=== PATIENT | male | born 1960 | race Caucasian/White ===

== ENCOUNTER 2019-03-22 12:50 | Emergency (ER) | payer OTHER ==
[~2019-03-22] VITALS: Ht 175.3 cm; Wt 110.0 kg
[2019-03-22] MEDS ORDERED: SOD CHLORIDE 0.9% 1,000 ML IV STA (12:59)
[2019-03-22 13:01] VITALS: Ht 175.3 cm; Wt 110.0 kg
[2019-03-22] MEDS ORDERED: ONDANSETRON 4 MG INJ IV STA (13:10)
--- NOTE | 2019-03-22 13:17 | ERD ---
ER Documentation Chief Complaint Chief Complaint HPI This is a 58-year-old male that was brought into the emergency department by EMS after he was found sleeping on a hotel couch. The made found the patient and there was empty bottles of liquor. There is no drug paraphernalia. The patient stated he had consumed a significant amount of alcohol. EMS stated that there is no evidence of trauma. The patient denies any past medical history. He denies a headache. He denies any chest pain. He has no shortness of breath. He denies any hemoptysis hematemesis or melanotic stools but does state that he is nauseous. He states he drinks alcohol on a daily basis. ROS All systems reviewed and are negative except as per history of present illness. Allergies Allergies: Coded Allergies: No Known Drug Allergy (Verified Allergy, Mild, 09/02/08) Physical Exam Physical Exam Constitutional:Well-developed. Well-nourished. HEENT:Normocephalic. Atraumatic.Pupils were equal round reactive to light. Moist mucous membranes.No tonsillar exudates. Neck: No nuchal rigidity. No lymphadenopathy. No posterior cervical spine tenderness or step-offs. Respiratory: Not using accessory muscles of respiration.Lungs were clear to auscultation bilaterally. No rhonchi. No rales. No wheezing. Cardiovascular: Regular rate regular rhythm.No murmurs. No rubs were appreciated.S1, S2 normal. Distal pulses are palpable 2+ bilaterally. GI: Abdomen was soft. Nontender. Non Distended. No pulsatile abdominal masses or bruits. No rebound. No guarding. Bowel sounds were present and normal. Muscle skeletal: Full range of motion of both the upper and lower extremities bilaterally.Normal muscle tone.No assymetrical calf tenderness or swelling. Skin: No petechia, no purpura. No lesions on the palms or the soles of the feet. No maculopapular rash. NEURO: Patient was alert, awake, orientated x3.patient smelled of alcohol. Slurred speech. Gait ataxic. Procedures/MDM This is a 58-year-old male that presented to the emergency department with physical exam findings suggestive of clinical intoxication. The patient had no physical exam findings of trauma. The patient had no severe electrolyte abnormalities. Serum ethanol was elevated. The patient was attempting to leave however the patient was still clinically intoxicated. Verbal de-escalation was unable to calm the patient down and therefore the patient received 1 mg of Ativan intravenously. He was also given Zofran for his nausea. He received IV fluids in the emergency department. Observation Note: Time: 4 hours Family Hx: No Hypertension Evaluation: Multiple exams showed improving symptoms and no evidence of impending delirium tremors. Patient was now able to ambulate without ataxia. Speech was not slurred. The patient was discharged home in fair condition. They were instructed to return to the emergency department at any time if there was any worsening of their condition. The patient stated they would follow up with their PCP in the next 24-48 hours to initiate a suitable medication regimen under the care of their PCP as well as to allow their PCP to monitor any drug reactions. The patient was discharged home with prescriptions after they gave informed consent to the new medication. They were also fully informed by myself on the adverse effects and adverse drug interactions in order to provide adequate safeguards to prevent possible adverse reactions to medications. Departure Diagnosis: Primary Impression: Alcoholic intoxication Complication of substance-induced condition: uncomplicated Qualified Codes: F10.920 - Alcohol use, unspecified with intoxication, uncomplicated Condition: Fair KALANI GARCIA MD Mar 22, 2019 13:14
[2019-03-22] MEDS ORDERED: LORAZEPAM 2 MG INJ IV ONE ×3 (13:30→20:30)
[2019-03-22 22:15] VITALS: BP 135/90; PULSE 99; RESP 14
[2019-03-23] MEDS ORDERED: ONDANSETRON 4 MG INJ IV ONE (00:50)
== END 2019-03-23 08:51 | disposition home or self-care (01) ==
LOC: E/R 12:50
DX: F10.920 Alcohol use, unspecified with intoxication, uncomplicated (principal); R40.2142 Coma scale, eyes open, spontaneous, at arrival to emergency department; R40.2242 Coma scale, best verbal response, confused conversation, at arrival to emergency department; R40.2362 Coma scale, best motor response, obeys commands, at arrival to emergency department
CPT/HCPCS: 80053; 80307; 85025; 85610; 85730; 96361; 96374; 96375; 96376; J2060; J2405; J7030; Z7502